=== PATIENT | female | born 1965 | race Caucasian/White ===

== ENCOUNTER 2018-01-27 17:17 | Outpatient (CLI) | payer BC ==
[2018-01-27 17:52] LABS: #Eosinphils 0.2 thou/uL (0.0-0.7); #Lymphocytes 1.4 thou/uL (1.20-3.40); #Monocytes 0.4 thou/uL (0.11-0.59); #Neutrophils 2.4 thou/uL (1.40-6.50); %Basophils 0.7 % (0.0-1.0); %Lymphocytes 31.7 % (21.0-51.0); %Monocytes 9.5 % (0.0-10.0); %Neutrophils 54.2 % (42.0-75.0); Hemoglobin 14.2 g/dL (12.0-16.0); Mean Corpuscular HGB CONC 34.7 g/dL (32.0-36.0); Mean Corpuscular Hemoglobin 35.4 pg (27.0-31.0); Platelet Count 254 thou/uL (130-400); RBC Distribution Width 11.8 % (11.5-14.5); Red Blood Cell (RBC) Count 4.02 mill/uL (4.20-5.40); White Blood Cell (WBC) Count 4.4 thou/uL (4.8-10.8)
[2018-01-27 18:16] LABS: Anion Gap 12 mmol/L (10-20); BUN (Urea Nitrogen) 28 mg/dL (9.8-20.1); Calc. Creatinine Clearance 0 mL/min (70-130); Calcium 9.2 mg/dL (7.8-10.44); Carbon Dioxide 27 mmol/L (22-29); Chloride 104 mmol/L (98-107); Estimated GFR-MDRD 63; Glucose 97 mg/dL (70-105); Potassium 3.4 mmol/L (3.5-5.1); Sodium 140 mmol/L (136-145)
== END 2018-01-27 17:18 | disposition home or self-care (01) ==
LOC: LABBT 17:17
PROVIDERS: ATTEND Orthopaedic Surgery
DX: Z01.818 Encounter for other preprocedural examination (principal); M75.101 Unspecified rotator cuff tear or rupture of right shoulder, not specified as traumatic

== ENCOUNTER 2018-02-02 07:03 | Day surgery (SDC) | payer BC ==
[2018-01-27 17:40] VITALS: BMI 29.9
[2018-02-02] MEDS ORDERED: CEFAZOLIN/Water 2 GM/20 ML SYRINGE ONE (08:01)
[2018-02-02] MEDS ORDERED: Fentanyl 100 MCG/2 ML VIAL ONE (08:06)
[2018-02-02] MEDS ORDERED: Midazolam HCl 2 mg/2 ml Vial ONE (08:06)
[2018-02-02] MEDS ORDERED: Zolpidem Tartrate 5 MG TAB PO PRN (08:38)
[2018-02-02] MEDS ORDERED: Ondansetron HCl/PF 4 MG/2 ML Vial IVP PRN (08:38)
[2018-02-02] MEDS ORDERED: Ropivacaine HCl/PF 1,100 MG in Sodium Chloride 0.9% 440 ML NERVE BLCK SCH (08:38)
[2018-02-02] MEDS ORDERED: HYDROcodone/Acetaminophen 10/325 mg Tablet PO PRN ×2 (08:38)
[2018-02-02] MEDS ORDERED: Promethazine HCl 25 MG/ML VIAL IM PRN (08:38)
[2018-02-02] MEDS ORDERED: traMADol HCl 50 MG TAB PO PRN ×2 (08:38)
[2018-02-02] MEDS ORDERED: PROPOFOL 200 MG/20 ML VIAL ONE (09:30)
[2018-02-02] MEDS ORDERED: Ondansetron HCl/PF 4 MG/2 ML Vial ONE (09:30)
[2018-02-02] MEDS ORDERED: Glycopyrrolate 0.2 MG/ML 5 ML SYRINGE ONE (09:30)
[2018-02-02] MEDS ORDERED: Ketorolac Tromethamine 30 MG/ML VIAL ONE (09:30)
[2018-02-02] MEDS ORDERED: Ropivacaine 0.2% HCl/PF (40 MG/20 ML VIAL) ONE (11:52)
[2018-02-02] MEDS ORDERED: Ketorolac Tromethamine 30 MG/ML VIAL IVP SCH (12:00)
--- NOTE | 2018-02-02 14:51 | OP ---
PREOPERATIVE DIAGNOSES: Rotator cuff tear and impingement, right shoulder. POSTOPERATIVE DIAGNOSES: Rotator cuff tear and impingement, right shoulder with loose body, right gl enohumeral joint. SURGEON: Jerome Torres M.D. ANESTHESIA: General. BLOOD LOSS: Minimal. SPECIMEN: None. DRAINS: None. COMPLICATIONS: None. BANK COURIER: None. DESCRIPTION OF PROCEDURE: The patient was taken to the operating room where general anesthesia was i nduced. Patient placed in left lateral decubitus position. Right arm was placed in traction and pre pped and draped in the usual sterile fashion. Scope was placed in the glenohumeral joint. The bicep s tendon was in good condition. There was no significant arthritis in glenohumeral joint. There was a loose body in the joint, which was removed using a grasper. The joint was irrigated. Scope was p laced in the rotator cuff, was examined and found to be a full-thickness rotator cuff tear. Scope wa s placed in subacromial bursa, extensive bursectomy was performed. CA ligament was taken down. Hemo stasis was obtained. I freshened the greater tuberosity. I placed 2 TwinFix suture anchors through the greater tuberosity. Sutures were passed through the rotator cuff, tied down with a good watertig ht repair and reinforced with a single double-row anchor. Anterior inferior acromioplasty was perfor med and bursal tissue was removed anteriorly as well as posteriorly and laterally. CA ligament did n ot appear to have significant spur. Portals closed with nylon suture.
== END 2018-02-02 14:22 | disposition home or self-care (01) ==
LOC: SDC 07:03
PROVIDERS: ATTEND Orthopaedic Surgery
PROC: 0RNJ4ZZ Release Right Shoulder Joint, Percutaneous Endoscopic Approach (ICD-10-PCS; principal; 2018-02-02)
PROC: 0LM14ZZ Reattachment of Right Shoulder Tendon, Percutaneous Endoscopic Approach (ICD-10-PCS; principal; 2018-02-02)
DX: M75.121 Complete rotator cuff tear or rupture of right shoulder, not specified as traumatic (principal); M75.41 Impingement syndrome of right shoulder; K58.0 Irritable bowel syndrome with diarrhea; Z79.51 Long term (current) use of inhaled steroids; Z79.899 Other long term (current) drug therapy
CPT/HCPCS: C1713; G8984-GP-CK; G8985-GP-CK; G8986-GP-CK; J1885; J2250; J2405; J2704; J2795; J3010; J7050

== ENCOUNTER 2019-02-08 15:53 | Outpatient (CLI) | payer BC ==
--- NOTE | 2019-02-08 16:19 | MMO ---
Bilateral MAMMO Bilat Screen [facility]. CLINICAL HISTORY: Patient is 53 years old and is seen for screening. The patient has the following family history of breast cancer: maternal grandmother. The patient has no personal history of cancer. VIEWS: The views performed were: bilateral craniocaudal with tomosynthesis and bilateral mediolateral oblique with tomosynthesis. FILMS COMPARED: The present examination has been compared to prior imaging studies performed at [facility] on 05/15/2015 and 02/16/2017, and at [facility] on 07/07/2011 and 11/20/2012. MAMMOGRAM FINDINGS: There are scattered fibroglandular densities. There are benign appearing calcifications seen in both breasts. There are no suspicious masses, suspicious calcifications, or new areas of architectural distortion. IMPRESSION: THERE IS NO MAMMOGRAPHIC EVIDENCE OF MALIGNANCY. A ROUTINE FOLLOW-UP MAMMOGRAM IN 1 YEAR IS RECOMMENDED. THE RESULTS OF THIS EXAM WERE SENT TO THE PATIENT. ACR BI-RADS Category 2 - Benign finding MAMMOGRAPHY NOTE: 1. A negative mammogram report should not delay a biopsy if a dominant of clinically suspicious mass is present. 2. Approximately 10% to 15% of breast cancers are not detected by mammography. 3. Adenosis and dense breasts may obscure an underlying neoplasm.
== END 2019-02-08 15:54 | disposition home or self-care (01) ==
LOC: BICMAMMO 15:53
PROVIDERS: ATTEND Family Medicine
DX: Z12.31 Encounter for screening mammogram for malignant neoplasm of breast (principal); Z80.3 Family history of malignant neoplasm of breast
CPT/HCPCS: 77063; 77067

== ENCOUNTER 2020-08-08 22:32 | Inpatient (IN) | payer BC ==
[~2020-08-08 22:32] MED LIST: Iopamidol-370 76% 500 ML 1 ML ONE
[2020-08-08] MEDS ORDERED: Ondansetron PF 4 MG/2 ML Vial ONE (22:48)
[2020-08-08] MEDS ORDERED: Fentanyl 100 MCG/2 ML VIAL ONE ×3 (22:48→23:40)
[2020-08-08] MEDS ORDERED: Midazolam HCl 2 mg/2 ml Vial ONE (22:53)
[2020-08-08 23:04] LABS: #Monocytes 0.7 thou/uL (0.11-0.59); %Basophils 0.1 % (0.0-1.0); %Eosinophils 0.1 % (0.0-10.0); %Lymphocytes 7.9 % (21.0-51.0); %Monocytes 5.2 % (0.0-10.0); %Neutrophils 86.6 % (42.0-75.0); Hemoglobin 8.2 g/dL (12.0-16.0); Mean Corpuscular HGB CONC 35.1 g/dL (32.0-36.0); Mean Corpuscular Hemoglobin 36.9 pg (27.0-31.0); Mean Platelet Volume 7.3 fL (7.4-10.4); Platelet Count 248 thou/uL (130-400); RBC Distribution Width 11.7 % (11.5-14.5); Red Blood Cell (RBC) Count 2.23 mill/uL (4.20-5.40); White Blood Cell (WBC) Count 12.7 thou/uL (4.8-10.8)
[2020-08-08 23:10] LABS: INR-International Normal Ratio 1.2
[2020-08-08] MEDS ORDERED: Calcium Chloride 1 GM/10 ML Abboject SYRINGE ONE (23:10)
[2020-08-08] MEDS ORDERED: cefTRIAXone\\ROCEPHIN 1 GM VIAL ONE (23:10)
[2020-08-08 23:14] LABS: PTT 21.2 sec (22.9-36.1)
[2020-08-08 23:23] LABS: MDiff Complete? YES; Macrocytosis SLIGHT = 6-15 cells (100X) (0-5/hpf); Platelet Morphology Comment Appears Adequate; Polychromasia SLIGHT = 2-3 cells (100X) (0-2/hpf)
[2020-08-08] MEDS ORDERED: HYDROmorphone 0.5 MG/0.5 ML SYRINGE ONE (23:56)
[2020-08-09 00:07] LABS: ALT (SGPT) 33 U/L (8-55); AST (SGOT) 27 U/L (5-34); Albumin 2.8 g/dL (3.5-5.0); Alkaline Phosphatase 35 U/L (40-110); Anion Gap 18 mmol/L (10-20); BUN (Urea Nitrogen) 19 mg/dL (9.8-20.1); Bilirubin, Total 0.4 mg/dL (0.2-1.2); CK (CPK) 17 U/L (29-168); Calc. Creatinine Clearance 0 mL/min (70-130); Calcium 7.3 mg/dL (7.8-10.44); Carbon Dioxide 14 mmol/L (22-29); Chloride 110 mmol/L (98-107); Estimated GFR-MDRD 55; Globulin 1.6 g/dL (2.4-3.5); Glucose 191 mg/dL (70-105); Protein, Total 4.4 g/dL (6.0-8.3); Sodium 138 mmol/L (136-145)
[2020-08-09] MEDS ORDERED: Heparin 10,000 UNITS/ 10 ML VIAL ONE (00:11)
[2020-08-09] MEDS ORDERED: Rocuronium Bromide 10 MG/ML (10ML VIAL) ONE (00:26)
[2020-08-09] MEDS ORDERED: Lidocaine 1% PF 5 ML VIAL ONE (00:26)
[2020-08-09] MEDS ORDERED: Ondansetron PF 4 MG/2 ML Vial ONE (00:26)
[2020-08-09] MEDS ORDERED: Succinylcholine 200 MG/10 ml SYRINGE FS ONE (00:26)
[2020-08-09] MEDS ORDERED: Promethazine HCl 25 MG/ML VIAL IM PRN ×2 (02:32→02:41)
[2020-08-09] MEDS ORDERED: Promethazine HCl 25 MG/ML VIAL SLOW IVP PRN (02:32)
[2020-08-09] MEDS ORDERED: Ondansetron HCl/PF 4 MG/2 ML Vial IVP PRN (02:32)
[2020-08-09] MEDS ORDERED: Naloxone HCl 0.4 mg/ml Vial IV PRN (02:41)
[2020-08-09] MEDS ORDERED: diphenhydrAMINE 25 MG CAP PO PRN (02:41)
[2020-08-09] MEDS ORDERED: diphenhydrAMINE 50 MG/ML VIAL IM PRN (02:41)
[2020-08-09] MEDS ORDERED: diphenhydrAMINE 50 MG/ML VIAL IVP PRN (02:41)
[2020-08-09] MEDS ORDERED: HYDROmorphone 10 mg/100 ml CADD IVPB PRN (02:41)
[2020-08-09] MEDS ORDERED: hydrALAZINE 20 MG/ML VIAL SLOW IVP PRN (02:42)
[2020-08-09] MEDS ORDERED: Dextrose 5% in Water 1,000 ML IV PRN (02:42)
[2020-08-09] MEDS ORDERED: Dextrose 50% Abboject 50 ML SYRINGE SLOW IVP PRN (02:42)
[2020-08-09] MEDS ORDERED: Communication Order-Pharmacy FS SCH (02:45)
[2020-08-09] MEDS ORDERED: Fentanyl 100 MCG/2 ML VIAL ONE ×2 (02:49→03:36)
[2020-08-09] MEDS ORDERED: Ketorolac Tromethamine 30 MG/ML VIAL ONE (02:57)
--- NOTE | 2020-08-09 04:21 | OP ---
DATE OF PROCEDURE: 08/09/2020 PREOPERATIVE DIAGNOSES: 1. Splenic rupture with active hemorrhage. 2. Massive hemoperitoneum secondary to splenic rupture with active hemorrhage. POSTOPERATIVE DIAGNOSES: 1. Splenic rupture with active hemorrhage. 2. Massive hemoperitoneum secondary to splenic rupture with active hemorrhage. OPERATIONS PERFORMED: 1. Exploratory laparotomy. 2. Splenectomy. 3. Evacuation of 2970 mL hemoperitoneum plus 1 L of blood clots. MAINTENANCE PARTS TECHNICIAN: Luz Maria Yanez PA-C. ANESTHESIA: General endotracheal. ESTIMATED BLOOD LOSS: 200 mL. FLUIDS GIVEN: 1000 mL crystalloids and 932 mL of Cell Saver blood out of the 2970 mL of recovered hemoperitoneum. The patient was also given 3 units of packed red blood cells and 3 units of fresh frozen plasma in the emergency department prior to surgery. COUNTS: Sponge and instrument counts were verified as correct x2. COMPLICATIONS: None apparent at the time of operation. INDICATIONS FOR OPERATION: This is a 55-year-old woman, who underwent colonoscopy yesterday morning. Soon after she developed progressive abdominal pain associated with abdominal distention. She was brought to the emergency department and found in hemorrhagic shock with low blood pressure. Focused abdominal sonogram for trauma reveals a massive amount of free fluid. The patient received 3 units of packed red blood cells and 3 units of fresh frozen plasma, and her blood pressure improved. She was taken to the CT scan for a CT of the abdomen and pelvis. This revealed a ruptured spleen with massive hemoperitoneum and active contrast extravasation to suggest ongoing hemorrhage. By this time, her blood pressure was started to decrease. The patient was taken emergently to the operating room. Findings are consistent with complete splenic rupture with massive hemoperitoneum and active bleeding. Also noted is extensive intraabdominal adhesions from her history of ulcerative colitis. No previous abdominal surgeries. DESCRIPTION OF OPERATION: Informed consent was obtained from the patient, who was brought to the operating room and placed in supine position. Following general anesthesia, Brewer catheter was inserted and placed to bedside drain. Nasogastric tube was placed to wall suction. The abdomen was sterilely prepped and draped in usual fashion. A midline incision was made using 10 scalpel. Incision was carried through subcutaneous tissues, maintaining hemostasis using cautery. Fascia was incised in the midline along the line of the incision exposing the peritoneum , which was grasped x2 with hemostats. The peritoneal cavity was sharply entered using Metzenbaum scissors. The incision was then extended superiorly and inferiorly. Large amount of blood was evacuated from the abdominal cavity. I placed laparotomy packs in the left upper quadrant to achieve temporary hemostasis. Once the massive hemoperitoneum was evacuated including large amount of clots as stated above, we were then able to remove the laparotomy packs from the left upper quadrant. Short gastrics were divided between clamps and ligated with stick tie of 2-0 silk and then reinforced with clip. The splenic hilum was cross clamped and divided. The splenocolic ligaments were divided using LigaSure device with good hemostasis. The splenic vascular stump was then ligated using a stick tie of 2-0 silk. This was reinforced with a free tie of 2-0 silk and clips. The abdominal cavity was then copiously irrigated clear with saline. Small bowel was run from ligament of Treitz down to terminal ileum. Large intestine was inspected from the cecum through the ascending, transverse, descending, sigmoid colon, and rectum. No palpable abnormalities. There was extensive amount of adhesions, however, involving the small bowel and colon as well as the lateral gutters on both sides. Previous nasogastric tube was palpated within the gastric lumen. The liver was free of any abnormalities. The gallbladder was in the usual anatomic location devoid of stones. Finding no other pathology, exploration was terminated. The abdominal cavity was again re-irrigated until it was clear. All sponges and instruments were reported as correct x2. I placed a sheet of Seprafilm in the deep pelvis and between small bowel loops prior to return to normal anatomic location. Omentum was drawn over remainder of the viscera. Fascia was then approximated in the midline using a running stitch of #1 single stranded PDS. Subcutaneous tissues were pulse lavaged with 3 L of sterile saline. Deep subcutaneous tissues were approximated using interrupted sutures of 3-0 Vicryl. Skin incision was then closed using a running stitch of 3-0 Monocryl suture in a subcuticular fashion. Dermabond was applied over incisional closure. The patient tolerated the operation without any apparent complication and was returned to the recovery room in satisfactory condition. Job ID: [id number]
[2020-08-09] MEDS ORDERED: Ketorolac Tromethamine 30 MG/ML VIAL IVP SCH (06:00)
[2020-08-09] MEDS: CEFAZOLIN 2 GM in Premix Bag 1 BAG IVPB SCH ×2 (06:40→14:45)
[2020-08-09] MEDS ORDERED: Sodium Chloride 0.9% 10 ML ONE (06:49)
[2020-08-09] MEDS: Sodium Chloride 0.9% 1,000 ML IV SCH ×3 (06:49→14:44)
[2020-08-09 07:06] LABS: INR-International Normal Ratio 1.2; Prothrombin Time 15.3 sec (12.0-14.7)
[2020-08-09 07:09] LABS: #Lymphocytes 2.5 thou/uL (1.20-3.40); #Monocytes 2.3 thou/uL (0.11-0.59); #Neutrophils 11.6 thou/uL (1.40-6.50); %Basophils 0.1 % (0.0-1.0); %Eosinophils 0.1 % (0.0-10.0); %Lymphocytes 15.2 % (21.0-51.0); %Neutrophils 70.7 % (42.0-75.0); Hemoglobin 13.6 g/dL (12.0-16.0); Mean Corpuscular Hemoglobin 34.4 pg (27.0-31.0); Mean Platelet Volume 7.7 fL (7.4-10.4); Platelet Count 111 thou/uL (130-400); RBC Distribution Width 14.8 % (11.5-14.5); Red Blood Cell (RBC) Count 3.95 mill/uL (4.20-5.40); White Blood Cell (WBC) Count 16.4 thou/uL (4.8-10.8)
[2020-08-09 07:11] LABS: Lactic Acid 2.2 mmol/L (0.5-2.2)
[2020-08-09 07:16] LABS: Anion Gap 14 mmol/L (10-20); BUN (Urea Nitrogen) 16 mg/dL (9.8-20.1); Calc. Creatinine Clearance 90 mL/min (70-130); Calcium 7.3 mg/dL (7.8-10.44); Carbon Dioxide 17 mmol/L (22-29); Chloride 114 mmol/L (98-107); Estimated GFR-MDRD 63; Glucose 151 mg/dL (70-105); Magnesium 1.7 mg/dL (1.6-2.6); Sodium 141 mmol/L (136-145)
[2020-08-09 07:28] LABS: PTT 22.2 sec (22.9-36.1)
--- NOTE | 2020-08-09 08:34 | CT ---
PRELIMINARY REPORT/DIRECT RADIOLOGY/EMERGENCY AFTER HOURS PROCEDURE: Receipt of this report by the clinical staff was confirmed with Chance Melendez DO by Pete Quezada on Aug 09, 2020 00:30:00 SALES COUNSELOR. Addendum electronically signed by Pete Quezada on August 09, 2020 12:30:49 AM SALES COUNSELOR EXAM: CT Abdomen and Pelvis with Intravenous Contrast CLINICAL HISTORY: Patient is a 55-year-old female presenting to the emergency department via EMS via emergency traffic for severe abdominal pain. Patient underwent a colonoscopy earlier today to evaluate her ulcerative colitis. Approximately 4 hours ago she developed severe abdominal pain and st arted passing out at home. On EMS arrival to the scene patient was hypotensive to roughly 60 over palp with a GCS of 13. She was resuscitated with 2 L of normal saline. Patient arrives to the emergen cy department GCS 15 complaining of severe abdominal pain. TECHNIQUE: Axial computed tomography images of the abdomen and pelvis with intravenous contrast. Cor onal and sagittal reformatted images provided. CONTRAST: With; ISOVUE 370,100mL intravenous. No Oral contrast. COMPARISON: None provided. FINDINGS: LUNG BASES: No basilar airspace consolidation or pleural effusion. LIVER: Unremarkable. GALLBLADDER AND BILE DUCTS: Gallbladder surgically absent. PANCREAS: Unremarkable. SPLEEN: Large subcapsular hematoma with underlying splenic laceration with linear hyperdensity sugges tive of active extravasation. The splenic parenchyma is compressed and remains perfused. There is hemorrhage extending beyond the capsule into the peritoneum. Blood products are seen within the rig ht and left abdomen and pelvis. The central splenic vasculature appears intact. ADRENAL GLANDS: Unremarkable. KIDNEYS, URETERS, AND BLADDER: No nephrolithiasis. No mass. Mild hydronephrosis bilaterally. Parap elvic cysts also possible. No ureteral or bladder calculi. STOMACH AND BOWEL: No obstruction. No wall thickening. No CT evidence of colitis or acute diverticuli tis. APPENDIX: No CT evidence for appendicitis. PERITONEUM: No free fluid. No free air. LYMPH NODES: No lymphadenopathy. REPRODUCTIVE: Unremarkable as visualized. VASCULATURE: No aortic aneurysm. Central line within the right common femoral vein. BONES: No fracture or suspicious osseous abnormality. Lower lumbar degenerative changes. ABDOMINAL WALL AND SOFT TISSUES: Unremarkable. IMPRESSION: Splenic injury with laceration, rupture large subcapsular hematoma and large volume activ e extravasation extending beyond the splenic capsule into the abdomen and pelvis. Compatible with at least AAST grade 3 splenic injury. Recommend surgical consult. ELECTRONICALLY SIGNED BY: Vinny Guerra M.D. Aug 09, 2020 12:27:11 AM SALES COUNSELOR FINAL REPORT ABDOMEN AND PELVIC CT SCAN WITH IV CONTRAST: EMERGENCY AFTER HOURS EXAM TIME: 12:01 AM. DATE: 08/09/2020. Very extensive intraparenchymal hemorrhage. Very extensive splenic injury and huge intrasplenic and p erisplenic hematoma. This report is in agreement with the preliminary report. Transcribed Date/Time: 08/09/2020 8:42 AM
[2020-08-09] MEDS: Pantoprazole 40 MG VIAL IVP SCH ×2 (08:35→20:30)
[2020-08-09] MEDS: Ondansetron PF 4 MG/2 ML Vial IVP PRN (08:35)
[2020-08-09] MEDS: Ketorolac Tromethamine 30 MG/ML VIAL IVP SCH ×3 (08:35→20:29)
[2020-08-09] MEDS ORDERED: Prevnar 13-Val Conj/PF 0.5 ML SYRINGE IM ONE (09:00)
[2020-08-09] MEDS ORDERED: FLU VACC QS2020-21(6MOS UP)/PF 60 MCG/0.5 ML SYRINGE IM ONE (09:00)
[2020-08-09] MEDS ORDERED: Magnesium 2 GM/50 ML 2 GM in Premix Bag 1 BAG IVPB SCH (10:00)
[2020-08-09 16:26] LABS: #Lymphocytes 2.5 thou/uL (1.20-3.40); #Monocytes 2.1 thou/uL (0.11-0.59); #Neutrophils 10.1 thou/uL (1.40-6.50); %Basophils 0.2 % (0.0-1.0); %Eosinophils 0.1 % (0.0-10.0); %Lymphocytes 16.7 % (21.0-51.0); %Monocytes 14.5 % (0.0-10.0); %Neutrophils 68.5 % (42.0-75.0); Hemoglobin 12.9 g/dL (12.0-16.0); Mean Corpuscular HGB CONC 33.2 g/dL (32.0-36.0); Mean Corpuscular Hemoglobin 34.2 pg (27.0-31.0); Mean Platelet Volume 7.5 fL (7.4-10.4); Platelet Count 132 thou/uL (130-400); RBC Distribution Width 14.9 % (11.5-14.5); Red Blood Cell (RBC) Count 3.76 mill/uL (4.20-5.40); White Blood Cell (WBC) Count 14.7 thou/uL (4.8-10.8)
[2020-08-09 16:45] LABS: Anion Gap 13 mmol/L (10-20); BUN (Urea Nitrogen) 19 mg/dL (9.8-20.1); Calc. Creatinine Clearance 70 mL/min (70-130); Calcium 7.6 mg/dL (7.8-10.44); Carbon Dioxide 19 mmol/L (22-29); Chloride 114 mmol/L (98-107); Estimated GFR-MDRD 47; Glucose 136 mg/dL (70-105); Magnesium 2.5 mg/dL (1.6-2.6); Phosphorus 3.6 mg/dL (2.3-4.7); Potassium 4.4 mmol/L (3.5-5.1); Sodium 142 mmol/L (136-145)
--- NOTE | 2020-08-09 17:16 | EKG ---
Test Reason : EMERGENCY Blood Pressure : / mmHG Vent. Rate : 089 BPM Atrial Rate : 089 BPM P-R Int : 128 ms QRS Dur : 078 ms QT Int : 340 ms P-R-T Axes : 058 060 062 degrees QTc Int : 413 ms Normal sinus rhythm Low voltage QRS Borderline ECG Confirmed by CHELA MELENDEZ DO ([id number]), state editor REBA AVILA ([id number]) on 08/09/2020 5:15:55 PM Referred By: Confirmed By:CHELA MELENDEZ DO
--- NOTE | 2020-08-09 21:54 | PRG ---
DATE OF SERVICE: 08/09/2020 SUBJECTIVE: The patient was seen during morning rounds, sleeping comfortably. The patient is postop day #0, status post splenic rupture with active hemorrhage. The patient had an exploratory laparotomy and splenectomy. The patient was given a liter of crystalloids and 932 mL of Cell Saver blood in the OR. The patient also got 3 units of packed red blood cells and 3 units of FFP in in the ER prior to surgery. The patient's pain is controlled at this time. Respirations are even and nonlabored, vitals are stable, and urine output is adequate for weight and age. LABORATORY DATA: WBC 14.7, hemoglobin 12.9, hematocrit 38.7. Sodium 142, potassium 4.4, creatinine 1.19. Estimated GFR 47. ASSESSMENT: Postoperative day #0, status post exploratory laparotomy with splenectomy. Acute nodule blood loss anemia, stable. PLAN: 1. Continue pain regimen. 2. Continue maintenance IV fluids. 3. Continue to monitor hemodynamics and urinary output. 4. Repeat labs tomorrow. 5. Plan was discussed with the patient who agrees. Job ID: [id number] [facility]
--- NOTE | 2020-08-10 00:09 | HP ---
SURGEON: Dr. Benitez. CONSULTING PHYSICIANS: None. HISTORY OF PRESENT ILLNESS: The patient is a 55-year-old female presented to the emergency department this evening complaining of severe abdominal pain. The patient was also hypotensive. Earlier in the day, she had received a colonoscopy. She has a history of ulcerative colitis and was being re-evaluated after starting new medications. The patient denied fevers or chills, chest pain, shortness of breath, cough, or weakness. The patient received the first series of MTP and a right MAC line was placed in the emergency department before her arrival. She was taken urgently to the OR for exploratory laparotomy. REVIEW OF SYSTEMS: All additional 10-point review of systems negative except as indicated above. PAST MEDICAL HISTORY: Ulcerative colitis and hypertension. PAST SURGICAL HISTORY: No previous abdominal surgeries. SOCIAL HISTORY: The patient works for [employer]. She lives at home with her . She denies tobacco, drug, and alcohol use. MEDICATIONS: 1. Hydrochlorothiazide. 2. Provera. 3. Estradiol. 4. Lomotil. 5. Humira. ALLERGIES: NO KNOWN DRUG ALLERGIES. PHYSICAL EXAMINATION: VITAL SIGNS: Temperature 98.8, pulse 99, respirations 38, oxygen saturation 99% on room air, blood pressure 125/79. GENERAL: Pale and weak appearing middle-aged female lying in bed with no signs of acute distress. PULMONARY: Equal chest rise and fall, clear breath sounds bilaterally. No signs of acute respiratory distress. CARDIAC: Regular rate and rhythm. GI: Abdomen is soft, moderately tender to palpation, nondistended. EXTREMITIES: 2+ pulses in all extremities. Gross motor and sensation intact. NEUROLOGIC: GCS is 15. LABORATORY FINDINGS: White count 12.7, hemoglobin 8.2, hematocrit 23.4, platelets 248. INR 1.2, PTT 21.2, PT 15.0. Sodium 138, potassium 4.0, chloride 110, bicarb 14, BUN 19, creatinine 1.05, total bilirubin 0.4, AST 27, ALT 33, alkaline phosphatase 35, troponin 0.014. DIAGNOSTIC FINDINGS: CT scan of the abdomen and pelvis demonstrates there is extensive intraparenchymal hemorrhage, very extensive splenic injury and huge intrasplenic and perisplenic hematoma. ASSESSMENT: 1. Splenic rupture with active hemorrhage, status post colonoscopy. 2. Massive hemoperitoneum secondary to splenic rupture with active hemorrhage. 3. History of hypertension and ulcerative colitis. PLAN: The patient will be taken urgently to the OR by Dr. Benitez for an exploratory laparotomy and splenectomy and hemorrhage control. Postoperatively, she will go to the floor. Job ID: [id number]
[2020-08-10] MEDS: Ketorolac Tromethamine 30 MG/ML VIAL IVP SCH ×4 (02:46→22:00)
[2020-08-10] MEDS: Sodium Chloride 0.9% 1,000 ML IV SCH (02:51)
[2020-08-10] MEDS: Ondansetron PF 4 MG/2 ML Vial IVP PRN ×2 (04:10→17:14)
[2020-08-10] MEDS ORDERED: Acetaminophen 500 MG TAB PO PRN (04:14)
[2020-08-10 07:10] LABS: Anion Gap 10 mmol/L (10-20); BUN (Urea Nitrogen) 19 mg/dL (9.8-20.1); Calc. Creatinine Clearance 108 mL/min (70-130); Calcium 7.3 mg/dL (7.8-10.44); Carbon Dioxide 21 mmol/L (22-29); Chloride 115 mmol/L (98-107); Estimated GFR-MDRD 78; Glucose 113 mg/dL (70-105); Magnesium 2.1 mg/dL (1.6-2.6); Sodium 142 mmol/L (136-145)
[2020-08-10 08:05] LABS: #Lymphocytes 2.2 thou/uL (1.20-3.40); #Monocytes 2.3 thou/uL (0.11-0.59); #Neutrophils 11.2 thou/uL (1.40-6.50); %Basophils 0.1 % (0.0-1.0); %Eosinophils 0.2 % (0.0-10.0); %Lymphocytes 14.1 % (21.0-51.0); %Monocytes 14.5 % (0.0-10.0); %Neutrophils 71.1 % (42.0-75.0); Hemoglobin 10.2 g/dL (12.0-16.0); Mean Corpuscular HGB CONC 33.9 g/dL (32.0-36.0); Mean Corpuscular Hemoglobin 34.7 pg (27.0-31.0); Mean Platelet Volume 7.9 fL (7.4-10.4); Platelet Count 110 thou/uL (130-400); RBC Distribution Width 14.7 % (11.5-14.5); Red Blood Cell (RBC) Count 2.95 mill/uL (4.20-5.40); White Blood Cell (WBC) Count 15.7 thou/uL (4.8-10.8)
[2020-08-10 08:06] LABS: Platelet Morphology Comment Appears Decreased
[2020-08-10] MEDS ORDERED: traMADol HCl 50 MG TAB PO PRN (09:20)
[2020-08-10] MEDS: Pantoprazole 40 MG VIAL IVP SCH ×2 (10:39→23:08)
[2020-08-10] MEDS: Hydrochlorothiazide 25 MG TAB PO SCH (10:40)
[2020-08-10] MEDS: Acetaminophen 500 MG TAB PO SCH ×3 (10:43→23:08)
--- NOTE | 2020-08-10 11:03 | PRG ---
DATE OF SERVICE: 08/10/2020 SUBJECTIVE: Ms. Crowe is a 55-year-old woman who is postoperative day #1, status post exploratory laparotomy with splenectomy for acute splenic rupture with hemorrhagic shock. The patient is awake and alert today. She reports adequate pain control. She is complaining of some headache, which I attribute to the nasogastric tube. NG tube overnight has returned 200 mL of nonbilious effluent. Urinary output is adequate for this patient's age and weight. OBJECTIVE: VITAL SIGNS: Today include blood pressure 114/59, pulse 95, respiratory rate 16, temperature 97.9 degrees Fahrenheit, oxygen saturation 98% on room air. HEENT: Pupils equal, round, reactive to light and accommodation. HEART: Reveals regular rate and rhythm. LUNGS: Clear to auscultation bilaterally. Her breathing is regular and nonlabored. ABDOMEN: Soft with incisional tenderness to palpation. No peritoneal signs present. LABORATORY FINDINGS: Today includes a CBC with white blood cells, hemoglobin and hematocrit 10.2 and 30.2 respectively. Platelet count 110,000. Metabolic profile: Sodium 142, potassium 4.0, chloride is 115, bicarb is 21, BUN 19, creatinine 0.77, glucose 113, magnesium 2.1 and phosphorus 2.0. IMPRESSION: Postoperative day #1, status post exploratory laparotomy with splenectomy. PLAN: 1. We will discontinue IV fluids and IV pain medications. 2. The patient will be started on a clear liquid diet today to be advanced as tolerated. 3. We will start post splenectomy vaccinations today. 4. We will increase activity and anticipate discharge within next 24 to 48 hours upon return of bowel function. 5. The patient indicates understanding information provided. I have answered her questions. Job ID: [id number]
[2020-08-10] MEDS: traMADol HCl 50 MG TAB PO PRN ×2 (17:14→23:03)
[2020-08-11] MEDS: Ketorolac Tromethamine 30 MG/ML VIAL IVP SCH ×2 (03:25→08:25)
--- NOTE | 2020-08-11 03:37 | PRG ---
DATE OF SERVICE: 08/10/2020 SUBJECTIVE: The patient was seen this evening during rounds. She was lying in bed, resting comfortably and asleep with no signs of acute distress. Nursing reported no acute events. OBJECTIVE: VITAL SIGNS: Temperature 98.8, pulse 90, respirations 19, oxygen saturation 98% on room air, and blood pressure 130/67. GENERAL: Well-appearing middle-aged female, lying in bed, resting comfortably and asleep with no signs of acute distress. PULMONARY: Equal chest rise and fall. No signs of acute respiratory distress. ASSESSMENT: 1. Postop day #1, status post exploratory laparotomy with splenectomy. 2. History of ulcerative colitis. PLAN: Continue current clear liquid diet. Continue p.o. pain medications. Increase activity and monitor for return of bowel function. The patient will likely be able to go home. Job ID: [id number]
[2020-08-11] MEDS: traMADol HCl 50 MG TAB PO PRN ×2 (04:44→15:02)
[2020-08-11] MEDS: Acetaminophen 500 MG TAB PO SCH ×3 (04:51→08:39)
[2020-08-11 06:28] LABS: #Eosinphils 0.3 thou/uL (0.0-0.7); #Lymphocytes 2.1 thou/uL (1.20-3.40); #Monocytes 1.8 thou/uL (0.11-0.59); #Neutrophils 11.1 thou/uL (1.40-6.50); %Basophils 0.2 % (0.0-1.0); %Eosinophils 1.9 % (0.0-10.0); %Lymphocytes 13.5 % (21.0-51.0); %Monocytes 11.5 % (0.0-10.0); %Neutrophils 72.9 % (42.0-75.0); Hemoglobin 8.8 g/dL (12.0-16.0); Mean Corpuscular HGB CONC 34.8 g/dL (32.0-36.0); Mean Corpuscular Hemoglobin 35.2 pg (27.0-31.0); Mean Platelet Volume 7.4 fL (7.4-10.4); Platelet Count 181 thou/uL (130-400); RBC Distribution Width 14.2 % (11.5-14.5); Red Blood Cell (RBC) Count 2.49 mill/uL (4.20-5.40); White Blood Cell (WBC) Count 15.3 thou/uL (4.8-10.8)
[2020-08-11 06:57] LABS: Anion Gap 11 mmol/L (10-20); BUN (Urea Nitrogen) 10 mg/dL (9.8-20.1); Calc. Creatinine Clearance 139 mL/min (70-130); Calcium 7.6 mg/dL (7.8-10.44); Carbon Dioxide 22 mmol/L (22-29); Chloride 108 mmol/L (98-107); Estimated GFR-MDRD Greater than 90; Glucose 84 mg/dL (70-105); Magnesium 2.1 mg/dL (1.6-2.6); Phosphorus 1.4 mg/dL (2.3-4.7); Potassium 3.4 mmol/L (3.5-5.1); Sodium 138 mmol/L (136-145)
[2020-08-11] MEDS: Hydrochlorothiazide 25 MG TAB PO SCH ×2 (08:26→08:31)
[2020-08-11] MEDS ORDERED: Meningococcal Vaccine 0.5ML VIAL (MENACTRA) IM ONE (09:00)
[2020-08-11] MEDS ORDERED: Potassium Phosphate 30 MMOL in Sodium Chloride 0.9% 250 ML 250 ML IVPB SCH (09:30)
[2020-08-11] MEDS: Pantoprazole 40 MG VIAL IVP SCH ×2 (09:56→22:06)
[2020-08-11] MEDS: Aspirin/APAP/Caffeine Tab (Excedrin Migraine) PO PRN ×2 (11:21→16:54)
--- NOTE | 2020-08-11 15:42 | PRG ---
DATE OF SERVICE: 08/11/2020 SUBJECTIVE: Ms. Crowe is a 55-year-old female, who is postop day 2 following an exploratory laparotomy with splenectomy. The patient is doing well. She had a headache last night and this morning, which seems to have responded to Excedrin. The patient reports she has not had a bowel movement. She has passed a little gas. She is tolerating her clear liquid diet, but is ambulating with physical therapy throughout the halls. OBJECTIVE: VITAL SIGNS: Temperature 98.7, pulse 91, respirations 20, O2 saturation 100% on room air, blood pressure 136/72. GENERAL: A middle-aged woman standing in her room, in no acute distress, conversing appropriately. HEENT: Unremarkable. RESPIRATIONS: Clear to auscultation bilaterally. CARDIAC: Regular rate and rhythm. No murmurs. ABDOMEN: Soft and appropriately tender. MUSCULOSKELETAL: Moving all extremities well. LABORATORY DATA: White blood cells 15.3, hemoglobin 8.8, which is decreased from 10.2 yesterday, platelet count 181. Sodium 138, potassium 3.4, phosphorus 1.4, magnesium 2.1. DIAGNOSTIC IMAGING: None to report. ASSESSMENT: 1. Postop day 2, status post exploratory laparotomy with splenectomy. 2. History of ulcerative colitis. PLAN: 1. Replace electrolytes. 2. Add Senokot and MiraLAX for bowel regimen. 3. Advance diet as tolerated. Nursing plans to give full liquids for lunch and regular diet for dinner. 4. The patient should be able to be discharged home tomorrow pending to tolerate the advancement of her diet. The patient was seen and evaluated by Dr. Benitez on morning rounds. Job ID: [id number]
[2020-08-11] MEDS: Senokot 8.6 MG TAB PO SCH (22:15)
[2020-08-12] MEDS: Aspirin/APAP/Caffeine Tab (Excedrin Migraine) PO PRN ×3 (00:58→10:55)
[2020-08-12] MEDS: Acetaminophen 325 MG TAB PO SCH ×4 (00:59→10:06)
--- NOTE | 2020-08-12 01:49 | PRG ---
DATE OF SERVICE: 08/11/2020 SUBJECTIVE: The patient was seen this evening during rounds. She was sitting up in bed, awake and alert with no signs of acute distress. She reported her pain was well controlled. She is tolerating her regular diet today. She had some macaroni, some soup as well as plenty of fluids. She has been ambulating in the hallway. She is passing gas, but has not had a bowel movement yet. OBJECTIVE: VITAL SIGNS: Temperature 97.7, pulse 76, respirations 16, oxygen saturation 95% on room air, and blood pressure 137/72. GENERAL: Well-appearing middle-aged female, sitting up in bed with no signs of acute distress. PULMONARY: Equal chest rise and fall. No signs of acute respiratory distress. ABDOMEN: Soft, nontender, and nondistended. ASSESSMENT: 1. Postop day two status post exploratory laparotomy and splenectomy for splenic injury. 2. Hemorrhagic shock, resolved. 3. History of ulcerative colitis. PLAN: Continue current diet and pain regimen. Continue physical and occupational therapy. Continue ambulating as much as possible. Continue to monitor for return of bowel function. Job ID: [id number]
[2020-08-12] MEDS: traMADol HCl 50 MG TAB PO PRN ×2 (06:07→13:16)
[2020-08-12 07:16] LABS: Anion Gap 12 mmol/L (10-20); BUN (Urea Nitrogen) 10 mg/dL (9.8-20.1); Calc. Creatinine Clearance 139 mL/min (70-130); Calcium 7.8 mg/dL (7.8-10.44); Carbon Dioxide 26 mmol/L (22-29); Chloride 104 mmol/L (98-107); Estimated GFR-MDRD Greater than 90; Glucose 76 mg/dL (70-105); Magnesium 1.8 mg/dL (1.6-2.6); Phosphorus 2.3 mg/dL (2.3-4.7); Potassium 3.2 mmol/L (3.5-5.1); Sodium 139 mmol/L (136-145)
[2020-08-12 07:24] LABS: #Basophils 0.1 thou/uL (0.0-0.2); #Lymphocytes 2.1 thou/uL (1.20-3.40); #Monocytes 1.3 thou/uL (0.11-0.59); #Neutrophils 6.2 thou/uL (1.40-6.50); %Basophils 0.7 % (0.0-1.0); %Eosinophils 9.1 % (0.0-10.0); %Lymphocytes 19.9 % (21.0-51.0); %Monocytes 12.1 % (0.0-10.0); %Neutrophils 58.2 % (42.0-75.0); Hemoglobin 8.3 g/dL (12.0-16.0); Mean Corpuscular HGB CONC 33.8 g/dL (32.0-36.0); Mean Corpuscular Hemoglobin 34.4 pg (27.0-31.0); Mean Platelet Volume 8.2 fL (7.4-10.4); Platelet Count 185 thou/uL (130-400); RBC Distribution Width 14.2 % (11.5-14.5); White Blood Cell (WBC) Count 10.7 thou/uL (4.8-10.8)
[2020-08-12] MEDS ORDERED: Acthib 0.5 ML VIAL IM ONE (09:00)
[2020-08-12] MEDS ORDERED: Polyethylene Glycol 3350 17 GM Packet PO SCH (09:00)
[2020-08-12] MEDS ORDERED: Potassium Phosphate 30 MMOL, Magnesium Sulfate 2 GM in Sodium Chloride 0.9% 250 ML 250 ML IVPB SCH (09:15)
[2020-08-12] MEDS: Ondansetron PF 4 MG/2 ML Vial IVP PRN (09:42)
[2020-08-12] MEDS: Pantoprazole 40 MG VIAL IVP SCH (09:43)
[2020-08-12] MEDS: Senokot 8.6 MG TAB PO SCH (10:54)
[2020-08-12 11:58] VITALS: BP 111/63; TEMP 98.2
[2020-08-12] MEDS ORDERED: Ferrous Sulfate 325 MG TAB PO SCH (21:00)
[2020-08-12] MEDS ORDERED: Ascorbic Acid 500 mg Chewable Tablet PO SCH (21:00)
--- NOTE | 2020-08-13 02:25 | DIS ---
DATE OF ADMISSION: 08/09/2020 DATE OF DISCHARGE: 08/12/2020 DIAGNOSES ON ADMISSION: 1. Splenic rupture with hemorrhagic shock. 2. Acute blood loss anemia. DIAGNOSES ON DISCHARGE: 1. Splenic rupture with hemorrhagic shock. 2. Acute blood loss anemia. OPERATIONS PERFORMED: Exploratory laparotomy with splenectomy on 08/09/[address] Benitez. Please see separate dictation for operative report. HISTORY/HOSPITAL COURSE: A 55-year-old woman, who underwent colonoscopy on 08/08/2020. Hours later, the patient was having abdominal pain associated with hypertension, evaluated in the emergency department and found with massive hemoperitoneum associated with a splenic rupture. The patient underwent an emergent exploratory laparotomy with splenectomy. Following the uneventful surgery, she was admitted to the surgical floor, where she remained at the time of discharge. Postoperative day #3, she was ambulating with minimum difficulty. She was having normal bowel and urinary function. Pain was adequately controlled on oral analgesics. She has remained hemodynamically stable and afebrile since immediate postoperative period. Abdominal examination today reveals intact wound and no peritoneal signs on examination. Laboratory studies reveals stable hemoglobin and hematocrit at 8.3 and 24.2 respectively with a platelet count of 185,000. The patient has received all three of post splenectomy vaccinations. DISCHARGE INSTRUCTIONS: She will be discharged home today with the following instructions. 1. She follows up with me in the Surgery Clinic on August 26 at 2:30 p.m. 2. She is to take Tylenol 1000 mg p.o. q.6 hours p.r.n. pain. 3. She is also given a prescription for tramadol 50 mg #30 to be taken 1 to 2 p.o. q.6 hours p.r.n. pain. 4. She is to ambulate daily to avoid complications of venous thromboembolism. 5. She may increase diet as tolerated. 6. She is advised to resume all her pre-hospital medications as prescribed by her primary care physician. 7. She may shower and avoid soaking herself in a bathtub or swim until she has been seen by me. She is to avoid weight lifting in excess of 20 pounds until she has been released by me. Above findings and plan discussed with the patient in the presence of her . They both indicated understanding of the information provided. I have answered their questions. The patient has expressed gratitude for the care rendered to her during this hospitalization and surgery. Job ID: [id number]
--- NOTE | 2020-08-14 05:08 | PQF ---
CLINICAL DOCUMENTATION CLARIFICATION FORM: Dear : Rickie Benitez Date / Time: 08/14/2020 0508 Please exercise your independent, professional judgment in responding to the clarification form. Clinical indicators are provided on the bottom of this form for your review Please check appropriate box(es): [ x ] Ruptured Spleen is a postoperative complication of Colonoscopy [ ] Spontaneous Ruptured Spleen not related to procedure [ ] Other diagnosis [ ] Unable to determine Physician Signature: Date/Time: For continuity of documentation, please document condition throughout progress notes and discharge summary. Thank You. To be completed by CDI/Coding staff for physician review: Present Clinical Indicators - Signs / Symptoms / Labs Results and Location in Medical Record [X] BP 126/84, Pulse 105, Resp 18, Temp 97.3 Vital signs 08/09 [X] CT abdomen : Very extensive splenic injuery and huge intrasplenic and perisplenic hematoma Imaging Dr Laughlin 08/09 [X] complaining of severe abdominal pain, the pt is hypotensive H&P p1 08/09 Taghehchian PA-C [X] Earlier in the day, she had received a colonoscopy H&P p1 08/09 Taghehchian PA-C [X] Splenic rupture with active hemorrhage, s/p colonoscopy H&P p2 08/09 Taghehchian PA-C [X] Massive hemoperitoneum 2/2 to splenic rupture with active hemorrhage H&P p2 08/09 Taghehchian PA-C Present Risk Factors Results and Location in Medical Record [X] HTN H&P p1 08/09 Taghehchian PA-C [X] Ulcerative colitis H&P p1 08/09 Taghehchian PA-C [X] Hemorrhagic shock H&P p1 08/09 Taghehchian PA-C Present Treatments Results and Location in Medical Record [X] Transfusion of FFP, RBC and Liquid Plasma Blood bank 08/08 [X] IVF NS 1L NOV 27 [X] Splenectomy Operative report Dr Fall 08/09 [X] Evacuation of hematoma Operative report Dr Fall 08/09 CDS/Senior Counsel Commercial Signature: Misa Connorkelly Phone #: [phone] Date/Time: 08/14/2020 0508 This is a permanent part of the Medical Record [facility]
== END 2020-08-12 14:49 | disposition home or self-care (01) | DRG 907 ==
LOC: ERS 22:32 → SDC 08-09 00:18 → 3SE 08-09 02:42
PROVIDERS: ADMIT Surgery; ATTEND Surgery
PROC: 30233L1 Transfusion of Nonautologous Fresh Plasma into Peripheral Vein, Percutaneous Approach (ICD-10-PCS; 2020-08-08)
PROC: 30233N1 Transfusion of Nonautologous Red Blood Cells into Peripheral Vein, Percutaneous Approach (ICD-10-PCS; 2020-08-08)
PROC: 30233K1 Transfusion of Nonautologous Frozen Plasma into Peripheral Vein, Percutaneous Approach (ICD-10-PCS; 2020-08-08)
PROC: 06HY33Z Insertion of Infusion Device into Lower Vein, Percutaneous Approach (ICD-10-PCS; 2020-08-08)
PROC: 07BP0ZZ Excision of Spleen, Open Approach (ICD-10-PCS; principal; 2020-08-09)
PROC: 0DCW0ZZ Extirpation of Matter from Peritoneum, Open Approach (ICD-10-PCS; 2020-08-09)
DX: D78.22 Postprocedural hemorrhage of the spleen following other procedure (principal); R57.8 Other shock; K66.1 Hemoperitoneum; K51.90 Ulcerative colitis, unspecified, without complications; D62 Acute posthemorrhagic anemia; D73.5 Infarction of spleen; I10 Essential (primary) hypertension; Z79.899 Other long term (current) drug therapy; Z23 Encounter for immunization; Z90.49 Acquired absence of other specified parts of digestive tract; Y84.8 Other medical procedures as the cause of abnormal reaction of the patient, or of later complication, without mention of misadventure at the time of the procedure
CPT/HCPCS: 36415; 36430; 36556; 74177; 80048; 80053; 82550; 83605; 83735; 84100; 84484; 85025; 85610; 85730; 86850; 86900; 86901; 88305; 90471; 90648; 90662; 90732; 90733; 93005; 96374; 96375; C9113; G0008; G0009; J0690; J0696; J1170; J1644; J1885; J2250; J2405; J3010; J3475; J7050; P9016; P9048; P9059; Q9967

== ENCOUNTER 2020-09-21 20:34 | Emergency (ER) | payer BC ==
[~2020-09-21 20:34] MED LIST changes: +Iopamidol 370 76% 100 ML VIAL ONE; -Iopamidol-370 76% 500 ML 1 ML ONE
[2020-09-21 21:52] LABS: Bilirubin Negative (Negative); Blood, Urine Negative (Negative); Clarity Clear (Clear); Glucose, Urine (Dipstick) Normal (Negative); Ketone, Urine Negative (Negative); Leukocyte Negative Leu/uL (Negative); Nitrite Negative (Negative); Protein, Urine (Dipstick) Negative (Neg-Trace); Specific Gravity, Urine 1.021 (1.002-1.036); Urobilinogen Normal mg/dL (Less than 2); pH, Urine 5.5 (5.0-9.0)
[2020-09-21 22:37] LABS: #Basophils 0.1 thou/uL (0.0-0.2); #Eosinphils 0.2 thou/uL (0.0-0.7); #Lymphocytes 2.8 thou/uL (1.20-3.40); #Monocytes 1.1 thou/uL (0.11-0.59); #Neutrophils 3.3 thou/uL (1.40-6.50); %Basophils 1.8 % (0.0-1.0); %Eosinophils 3.3 % (0.0-10.0); %Lymphocytes 37.2 % (21.0-51.0); %Monocytes 14.3 % (0.0-10.0); %Neutrophils 43.5 % (42.0-75.0); Hemoglobin 13.5 g/dL (12.0-16.0); Mean Corpuscular HGB CONC 33.5 g/dL (32.0-36.0); Mean Corpuscular Hemoglobin 35.8 pg (27.0-31.0); Mean Platelet Volume 6.3 fL (7.4-10.4); Platelet Count 479 thou/uL (130-400); RBC Distribution Width 13.1 % (11.5-14.5); Red Blood Cell (RBC) Count 3.76 mill/uL (4.20-5.40); White Blood Cell (WBC) Count 7.5 thou/uL (4.8-10.8)
[2020-09-21 23:00] LABS: ALT (SGPT) 20 U/L (8-55); AST (SGOT) 20 U/L (5-34); Albumin 4.1 g/dL (3.5-5.0); Alkaline Phosphatase 66 U/L (40-110); Anion Gap 14 mmol/L (10-20); BUN (Urea Nitrogen) 23 mg/dL (9.8-20.1); Bilirubin, Total 0.3 mg/dL (0.2-1.2); Calc. Creatinine Clearance 0 mL/min (70-130); Calcium 8.9 mg/dL (7.8-10.44); Carbon Dioxide 24 mmol/L (22-29); Chloride 106 mmol/L (98-107); Globulin 2.7 g/dL (2.4-3.5); Glucose 98 mg/dL (70-105); Potassium 4.3 mmol/L (3.5-5.1); Protein, Total 6.8 g/dL (6.0-8.3); Sodium 140 mmol/L (136-145)
--- NOTE | 2020-09-21 23:42 | CT ---
CT ABDOMEN AND PELVIS WITH IV CONTRAST 09/21/2020 CLINICAL INFORMATION: Epigastric abdominal pain for 2 days. COMPARISON: 08/09/2020 Technique: Multiple contiguous axial CT images are obtained through the abdomen and pelvis with IV contrast. Cor onal reformatted images are provided. FINDINGS: Lower Chest: Mild scarring in the right middle lobe. Vessels: Abdominal aorta is normal in caliber. Abdomen: Portal vein:Patent Gallbladder: Surgically absent. Liver: Scattered tiny subcentimeter hypodense lesions are again seen in each lobe of the liver. Spleen: Surgically absent. Previously seen large area of hemorrhage in the left upper quadrant is no longer visualized. Pancreas: within normal limits. Adrenals: within normal limits. Kidneys: Bilateral parapelvic renal cysts. There is mild prominence of each renal collecting system u nchanged from prior study. Kidneys otherwise demonstrate a normal CT appearance without evidence of an enhancing lesion Bowel: Few mildly prominent loops of small bowel are seen in the left upper quadrant probably related to peristalsis. There are no findings to suggest a bowel obstruction. Small amount retained fecal material seen in the colon. Appendix: Not definitely visualized. Peritoneum: No ascites or free air; no fluid collection. Mesentery and Retroperitoneum: No enlarged mesenteric or retroperitoneal lymph nodes. Abdominal Wall: Very small fat-containing midline supraumbilical incisional hernias. Pelvis: Reproductive Organs: No pelvic masses. Bladder: within normal limits. Bones: Degenerative changes in the spine IMPRESSION: 1. No acute findings in the abdomen or pelvis. 2. Interval splenectomy. 3. Postcholecystectomy changes. 4. Small midline incisional fat-containing hernias. 5. Parapelvic renal cyst with mild prominence of each renal collecting system unchanged from prior ex am..
== END 2020-09-21 23:59 | disposition home or self-care (01) ==
LOC: ERS 20:34
DX: R10.11 Right upper quadrant pain (principal); R10.13 Epigastric pain
CPT/HCPCS: 36415; 74177; 80053; 81003; 83690; 85025; Q9967

== ENCOUNTER 2021-07-22 16:02 | Outpatient (CLI) | payer BC | END 2021-07-22 16:03 | disposition home or self-care (01) | LOC: BICMAMMO 16:02 | PROVIDERS: ATTEND Obstetrics & Gynecology | DX: Z12.31 Encounter for screening mammogram for malignant neoplasm of breast (principal); Z80.3 Family history of malignant neoplasm of breast | CPT/HCPCS: 77063; 77067 ==

== ENCOUNTER 2022-08-17 14:46 | Outpatient (CLI) | payer BC | END 2022-08-17 14:47 | disposition home or self-care (01) | LOC: BICMAMMO 14:46 | PROVIDERS: ATTEND Family Medicine | DX: Z12.31 Encounter for screening mammogram for malignant neoplasm of breast (principal); Z80.3 Family history of malignant neoplasm of breast; R92.1 Mammographic calcification found on diagnostic imaging of breast; R92.8 Other abnormal and inconclusive findings on diagnostic imaging of breast | CPT/HCPCS: 77063; 77067 ==

== ENCOUNTER 2023-09-02 15:40 | Outpatient (CLI) | payer BC | END 2023-09-02 15:41 | disposition home or self-care (01) | LOC: BICMAMMO 15:40 | PROVIDERS: ATTEND Family Medicine | DX: Z12.31 Encounter for screening mammogram for malignant neoplasm of breast (principal); Z80.3 Family history of malignant neoplasm of breast | CPT/HCPCS: 77063; 77067 ==

== ENCOUNTER 2025-09-06 13:23 | Outpatient (CLI) | payer OTHER | END 2025-09-06 13:24 | disposition home or self-care (01) | LOC: BICCT 13:23 | PROVIDERS: ATTEND Internal Medicine Cardiovascular Disease | DX: Z13.6 Encounter for screening for cardiovascular disorders (principal); R07.9 Chest pain, unspecified | CPT/HCPCS: 75571 ==